=== PATIENT | male | born 2000 | race Caucasian/White ===

== ENCOUNTER → 2020-10-02 | Outpatient (CLI) | payer BC | LOC: COL.RAD 08:03 | DX: S43.491A Other sprain of right shoulder joint, initial encounter (principal) | CPT/HCPCS: A9585; Q9967 ==

== ENCOUNTER 2022-04-13 23:16 | Emergency (ER) | payer SELFPAY ==
[~2022-04-13] VITALS: Ht 185.4 cm; Wt 111.4 kg
[2022-04-13 23:23] VITALS: TEMP 97.5
[2022-04-13] MEDS ORDERED: CRUTCHES MC (23:46)
[2022-04-14 00:10] VITALS: BP 127/86; PULSE 88
[2022-04-14] MEDS ORDERED: CRUTCHES MC (09:49)
== END 2022-04-14 00:10 | disposition home or self-care (01) ==
LOC: COL.ER 23:16
DX: S93.401A Sprain of unspecified ligament of right ankle, initial encounter (principal); Z28.310 Unvaccinated for COVID-19; W03.XXXA Other fall on same level due to collision with another person, initial encounter; Y93.67 Activity, basketball